=== PATIENT | male | born 1940 | race Caucasian/White ===

== ENCOUNTER 2016-09-22 12:01 | Emergency (ER) | payer OTHER, MEDICARE ==
[~2016-09-22] VITALS: Ht 177.8 cm; Wt 102.5 kg
[~2016-09-22 12:01] MED LIST: ASPIR 8181 M1 PO; CARDURA4 MG PO; DITROPAN5 MG PO; FLOMAX0.4 M1 PO; GLUCOPHAGE500 MG PO; GLYBURIDE5 MG PO; HYTRIN5 M1 PO; KLOR-CON 1010 ME1 PO; LEVAQUIN750 MG PO; LO-DOSE ASPIRIN81 M1 PO; MEN'S ONE DAIL1 EACH PO; METFORMIN HCL1000 MG PO; NEURONTIN300 MG PO; THERAGRAN1 TABLET PO; ZESTRIL5 MG PO
[2016-09-22 13:10] LABS: CHLORIDE 101 mEq/L (99-109); POTASSIUM 4.5 mEq/L (3.7-5.4); SODIUM 135 mEq/L (136-147)
[2016-09-22 13:11] LABS: GLUCOSE 196 mg/dL (70-99)
[2016-09-22 13:13] LABS: ANION GAP 11 MEQ/L (2-14); HEMATOCRIT 37.3 % (38.0-50.0); MCH 29.2 PG (29.0-34.0); MCHC 33.2 G/DL (30.0-36.0); MCV 87.8 FL (86-99); MEAN PLAT.VOLUME 10.7 uM^3 (9.0-12.4); PLATELET COUNT 209 K/uL (156-360); RBC DIS.WIDTH-SD 45.1 % (39-53); RED BLOOD COUNT 4.25 M/uL (4.00-5.50); WHITE BLOOD COUNT 8.3 K/uL (4.1-10.2)
[2016-09-22 13:15] LABS: GFR ESTIMATE (CALCULATED) > 59 mL/min/
[2016-09-22 13:16] LABS: UREA NITROGEN (BUN) 18 mg/dL (9-23)
[2016-09-22 13:19] LABS: TROP-I INTERPRETATION NEGATIVE; TROPONIN-I < 0.01 ng/mL (0.0-0.30)
[2016-09-22 14:01] VITALS: BP 131/76
[2016-09-22 14:27] LABS: D-DIMER ELISA 0.58 mg/L FEU (< 0.57)
[2016-09-22 14:31] VITALS: BP 103/60
[2016-09-22 15:00] VITALS: BP 120/67
[2016-09-22 15:30] VITALS: BP 133/80
[2016-09-22 16:01] VITALS: BP 140/74
[2016-09-22] MEDS ORDERED: ATORVASTATIN CA10 MG PO (18:14)
[2016-09-22] MEDS ORDERED: COLACE100 MG PO (18:57)
[2016-09-22] MEDS ORDERED: PERCOCET 5/31 TABLET PO (18:57)
[2016-09-22] MEDS ORDERED: MEDROL DOSEPAK4 MG PO (18:57)
[2016-09-22 19:14] VITALS: BP 136/73
== END 2016-09-22 19:15 | disposition home or self-care (01) ==
LOC: EME 12:01
PROVIDERS: Nurse Practitioner Family
DX: R09.1 Pleurisy (principal); E11.9 Type 2 diabetes mellitus without complications; Z85.118 Personal history of other malignant neoplasm of bronchus and lung; Z87.442 Personal history of urinary calculi; Z91.041 Radiographic dye allergy status
CPT/HCPCS: 71275; 80048; 84484; 85027; 85379; 93005; 99281; 99285; J1885; J2060; J2270; J2405; J2930

== ENCOUNTER → 2017-04-05 | Outpatient (CLI) | payer OTHER, MEDICARE ==
[~2017-04-05] MED LIST changes: +ATORVASTATIN CA10 MG PO; +COLACE100 MG PO; +LIPITOR10 MG PO; +MEDROL DOSEPAK4 MG PO; +NOVOLIN N100 UNITS/ SC; +PERCOCET 5/31 TABLET PO; +POTASSIUM-9999 MG PO; +ZESTRIL2.5 MG PO
[2017-04-05 16:37] LABS: TYPE OF FLUID PLEURAL
[2017-04-05 17:05] LABS: BODY FLUID LDH 239 IU/L; BODY FLUID PROTEIN 5.1 G/DL
[2017-04-05 17:56] LABS: BODY FLUID EOSINOPHILS 6 % (0-25); BODY FLUID RBC'S 145000 /MM^3 (0-100); BODY FLUID WBC'S 342 /MM^3 (0-500); COMMENT MODERATE MACROPHAGES AND RARE MESOTHELIAL CELLS SEEN; MONONUCLEAR WBC'S 61 %; POLYNUCLEAR WBC'S 33 % (0-25)
== END | disposition home or self-care (01) ==
LOC: EDSTATUS 15:30 → RAD 15:30
PROVIDERS: Internal Medicine
PROC: 0W9B3ZZ Drainage of Left Pleural Cavity, Percutaneous Approach (ICD-10-PCS; principal; 2017-04-05)
DX: J90 Pleural effusion, not elsewhere classified (principal)
CPT/HCPCS: 76942; 82945; 83615 91; 84157; 87070; 87075; 87205; 88108; 88305; 88341 TC; 88342 TC; 89051